=== PATIENT | male | born 1960 | race Caucasian/White ===

== ENCOUNTER → 2020-04-28 | Outpatient (CLI) | payer BC ==
--- NOTE | 2020-04-28 14:49 | REPPI ---
INDICATION: ELEVATED PSA. COMPARISON: None. TECHNIQUE: Transrectal ultrasound of the prostate is performed. FINDINGS: Prostate measures 4.5 x 2.8 x 5.1 cm, total volume 33.1 mL. Echotexture is diffusely heterogeneous. There are tiny cysts and calcifications throughout the prostate with no focal mass. Seminal vesicles are symmetrical. IMPRESSION: Ultrasound guidance was provided for Dr. Miller who performed ultrasound-guided biopsy of the prostate. <Electronically signed by Hari Mojica > 04/28/20 [id number]
== END ==
LOC: M SMT PRO 10:28
PROVIDERS: ATTEND Urology
DX: C61 Malignant neoplasm of prostate (principal); R97.20 Elevated prostate specific antigen [PSA]; N40.2 Nodular prostate without lower urinary tract symptoms
CPT/HCPCS: 76872; G0416

== ENCOUNTER → 2020-06-20 | Outpatient (CLI) | payer BC ==
[~2020-06-20] MED LIST: CHOLINE FENOFIBRATE PO; LISI20TA35 PO; METF500T13 PO; SIMV40TA20 PO; TRUL0.5I SC
== END ==
LOC: M LABSMTC 08:36
PROVIDERS: ATTEND Anesthesiology
DX: Z01.812 Encounter for preprocedural laboratory examination (principal); Z20.822 Contact with and (suspected) exposure to COVID-19

== ENCOUNTER 2020-06-25 06:08 | Inpatient (IN) | payer BC ==
[2020-06-25] VITALS (7 sets, daily range): BP systolic 130–170; BP diastolic 80–111
[~2020-06-25] VITALS: Ht 177.8 cm; Wt 96.2 kg
[~2020-06-25 06:08] MED LIST changes: +LIDOCAINE 1% MDV 20ML VIAL SQ PRN
[2020-06-25] MEDS ORDERED: HEPARIN SOD (PORCINE) 5000UNITS/ML 1ML VIAL/SYRINGE SQ ONE (07:00)
[2020-06-25] MEDS ORDERED: LR 1,000 ML IV ONE (07:00)
[2020-06-25] MEDS ORDERED: ceFAZolin SOD 2 GM in IV 1 EA IV ONE (07:00)
[2020-06-25] MEDS ORDERED: LIDOCAINE 1% SDV 30ML VIAL As Ordered ONE (07:08)
[2020-06-25] MEDS ORDERED: BUPIVACAINE HCL 0.25% 30ML VIAL As Ordered ONE (07:08)
[2020-06-25] MEDS ORDERED: ONDANSETRON 4MG/2ML VIAL As Ordered ONE (07:11)
[2020-06-25] MEDS ORDERED: LIDOCAINE 2% 100MG/5ML SDV (FOR ANES.) As Ordered ONE (07:11)
[2020-06-25] MEDS ORDERED: propofoL 200 MG/20 ML VIAL As Ordered ONE (07:11)
[2020-06-25] MEDS ORDERED: ROCURONIUM BROMIDE 50 MG/5 ML VIAL As Ordered ONE ×3 (07:11→10:01)
[2020-06-25] MEDS ORDERED: dexameTHASONE 4 MG/ML 1ML VIAL (J1100 PER 1MG) As Ordered ONE (07:11)
[2020-06-25] MEDS ORDERED: MIDAZOLAM INJ 2MG/2ML VIAL (J2250 PER 1MG) As Ordered ONE (07:12)
[2020-06-25] MEDS ORDERED: fentaNYL 100 MCG/2 ML INJECTION (J3010) As Ordered ONE ×2 (07:12→12:45)
[2020-06-25] MEDS ORDERED: KETAMINE HCL 200 MG/20 ML VIAL As Ordered ONE (07:12)
[2020-06-25] MEDS ORDERED: ACETAMINOPHEN 1000MG 100ML IV BTL (OFIRMEV) (J0131 PER 10MG) As Ordered ONE (07:13)
[2020-06-25] MEDS ORDERED: LACRILUBE (AKWA TEARS) OPHTH OINT 3.5 GM As Ordered ONE (07:19)
[2020-06-25] MEDS ORDERED: MORPHINE 2 MG/ML 1ML VIAL (J2270) IV PRN (07:25)
[2020-06-25] MEDS ORDERED: ONDANSETRON 4MG/2ML VIAL IV PRN ×2 (07:25→13:35)
[2020-06-25] MEDS ORDERED: ACETAMINOPHEN TAB 650MG DOSE (2X325MG) PO PRN (07:25)
[2020-06-25] MEDS ORDERED: PERCOCET 5MG/325MG TAB PO PRN (07:25)
[2020-06-25] MEDS ORDERED: GLUCAGON INJ 1MG VIAL SC PRN (07:40)
[2020-06-25] MEDS ORDERED: DEXTROSE 50% 50 ML SYRINGE IV PRN (07:40)
[2020-06-25] MEDS ORDERED: GLUCOSE 4GM CHEW TABLET PO PRN (07:40)
[2020-06-25] MEDS ORDERED: HYDROmorphone HCL 2 MG/ML 1ML VIAL (J1170) As Ordered ONE (08:06)
[2020-06-25] MEDS ORDERED: KETOROLAC 60MG 2ML VIAL As Ordered ONE (08:09)
[2020-06-25] MEDS ORDERED: SUGAMMADEX SODIUM 500 MG/5 ML VIAL (BRIDION) As Ordered ONE (08:09)
[2020-06-25] MEDS ORDERED: PHENYLephrine 500MCG 5ML (100MCG/ML) SYRINGE As Ordered ONE (09:04)
[2020-06-25] MEDS ORDERED: ceFAZolin 2 GM/D5W 50 ML IV BAG (J0690 PER 500MG) As Ordered ONE (11:31)
[2020-06-25] MEDS ORDERED: DESFLURANE 240 ML INHALANT As Ordered ONE (11:51)
[2020-06-25] MEDS: HumaLOG INSULIN (NovoLOG) PER UNIT SC SCH ×2 (12:00→17:28)
[2020-06-25] MEDS: fentaNYL 100 MCG/2 ML INJECTION (J3010) IV PRN ×4 (12:45→13:00)
--- NOTE | 2020-06-25 13:03 | ROOPDOC ---
[facility] Report Of Operation Report of Operation DATE OF PROCEDURE: 06/25/20 PREPROCEDURE DIAGNOSIS: Prostate cancer. POSTPROCEDURE DIAGNOSIS: Prostate cancer. PROCEDURE: Robotic-assisted laparoscopic radical prostatectomy with bilateral pelvic lymph node dissection. SURGEON: Amber Whiteside MD [employer] INSTRUCTOR: Prachi Begum NP ANESTHESIA: General. OPERATIVE INDICATIONS: This is a 59 year old male with clinical T2b [place] 3+4 prostate cancer. After a discussion of the options for treatment, he elected to undergo the above procedure. DESCRIPTION OF PROCEDURE: The patient was brought to the operating room and general anesthesia was induced. Prophylactic antibiotics were infused. He was then placed in the dorsal lithotomy position and prepped and draped in the usual sterile fashion. At this point, a Bowens catheter was inserted into the bladder and the balloon was filled with 10 mL of sterile water. We then made a midline incision just above the umbilicus for an 8 mm port. A Veress needle was utilized to achieve pneumoperitoneum. Next, an 8 mm port was inserted into the incision and subsequently a camera was inserted. There were no injuries from the Veress needle or initial trocar placement. At this point, we placed the remaining ports, including a 12 mm public relations assistant port and then three robotic ports in the usual configuration. Once all the ports were placed, the robot was docked. Lysis of adhesions between the sigmoid colon and abdominal wall was then performed. The bladder was then released from the anterior abdominal wall using electrocautery. Once the bladder was dropped, the fat overlying the prostate was cleared using electrocautery. The superficial dorsal vein was controlled with electrocautery. The endopelvic fascia was opened on both sides and the dorsal venous complex was cleared. Next, a #0 Vicryl [id number] stitch was placed around the dorsal venous complex. Once that was done, the bladder was opened and dissected away from the prostate. At this point, the prostate was lifted up. The vasa deferentia were identified in the midline. They were then ligated and transected. The seminal vesicles were also dissected off bilaterally. The rectum was safely mobilized away from the prostate. Bilateral prostatic pedicles were taken using the Harmonic scalpel. The pedicles were carried towards the apex. After taking care of the pedicles and mobilizing the rectum off the prostate below, the prostate was only connected by the urethra. At this point, the dorsal venous complex was transected with electrocautery. The urethra was then opened and the catheter was withdrawn and the posterior urethra was transected, thus freeing the prostate. At this point, we checked for hemostasis and it did appear very good. Next, we performed bilateral pelvic lymph node dissection. This was done in a standard fashion. The limits of dissection were the iliac vein proximally, the obturator nerve distally, the pelvic sidewall laterally, and the bladder medially. All lymphatic tissue within these limits was removed. I performed the same procedure on both the right and left sides. Hemostasis was then obtained with bipolar electrocautery. The lymphatic packets were then placed in separate Endo Catch bags for future retrieval. Once hemostasis was confirmed, I then moved on to perform the vesicourethral anastomosis. This was performed with a Quill stitch in a running fashion. Once this was done, the final #20-Surinamese Bowens catheter was placed. The balloon was filled with 15 mL of sterile water. Upon completion of the vesicourethral anastomosis, it was tested by filling the bladder with sterile saline water. The anastomosis appeared to be watertight. At this point, the prostate and seminal vesicles were placed in an Endo Catch bag for future retrieval. The robot was then undocked. A Nedra fascial closure device was utilized to place a #0 Vicryl suture between the fascia of the 12 mm public relations assistant port. At this point, a Scar- Anaya drain was brought in through the left robotic port skin site and the drain was positioned anterior to the bladder. The drain was secured to the skin with #2-0 Ethilon suture. Next, all the remaining ports were removed and there did not appear to be any bleeding from any of the port sites. The prostate, as well as the lymphatic packets were then extracted from the camera port site after the skin was extended. The fascia in this incision was then closed with a running #0 Vicryl stitch. The previously placed #0 Vicryl free ties through the a ssistant port were then tied down and all incisions were irrigated. Last, all of the incisions were closed with running subcuticular #4-0 Monocryl sutures. Local anesthesia was applied. Dermabond was then applied to the incisions. This marked the conclusion of the procedure. The patient was then taken out of the dorsal lithotomy position, awakened from anesthesia and transported to the recovery room in stable condition. ESTIMATED BLOOD LOSS: 175 mL. COMPLICATIONS: None. SPECIMENS: Prostate and seminal vesicles, right pelvic lymph nodes, left pelvic lymph nodes. PLAN: The patient will be admitted to the hospital postoperatively, and he will likely be discharged home within the next 1-2 days. AMBER WHITESIDE MD Jun 25, 2020 07:42
[2020-06-25 13:14] LABS: HEMATOCRIT 38.7 % (42.0-52.0); HEMOGLOBIN 13.1 g/dl (13.5-17.5); MEAN CORPUSCULAR HEMOGLOBIN 31.1 pg (27.0-33.0); MEAN CORPUSCULAR HGB CONC 33.9 g/dl (32.0-36.5); MEAN CORPUSCULAR VOLUME 91.9 fl (80.0-96.0); PLATELET COUNT, AUTOMATED 125 10^3/uL (150-450); RED BLOOD COUNT 4.21 10^6/uL (4.30-6.10); WHITE BLOOD COUNT 6.8 10^3/uL (4.0-10.0)
[2020-06-25] MEDS ORDERED: oxyCODONE 5MG TAB PO PRN (13:35)
[2020-06-25] MEDS ORDERED: LR 1,000 ML IV SCH (13:35)
[2020-06-25 13:41] LABS: BLOOD UREA NITROGEN 27 MG/DL (7-18); CALCIUM LEVEL 8.8 MG/DL (8.5-10.1); CARBON DIOXIDE LEVEL 25 MEQ/L (21-32); CHLORIDE LEVEL 105 MEQ/L (98-107); CREATININE FOR GFR 1.21 MG/DL (0.70-1.30); GLOMERULAR FILTRATION RATE > 60.0 (>56); GLUCOSE, FASTING 311 MG/DL (70-100); SODIUM LEVEL 136 MEQ/L (136-145)
[2020-06-25] MEDS: HYDROMORPHONE HCL 0.5 MG/ 0.5 ML SYRINGE (J1170 PER 1) IV PRN ×4 (13:52→14:13)
[2020-06-25] MEDS: HEPARIN SOD (PORCINE) 5000UNITS/ML 1ML VIAL/SYRINGE SC SCH ×2 (14:00→21:13)
[2020-06-25] MEDS: ceFAZolin SOD 1 GM in D5W MINI-BAG PLUS 50 ML IV SCH (16:39)
[2020-06-25] MEDS: PERCOCET 5MG/325MG TAB PO PRN ×2 (16:42→21:15)
[2020-06-25] MEDS: NS 1,000 ML IV SCH (17:20)
[2020-06-25] MEDS ORDERED: hydroCHLOROthiazide 12.5 MG CAPSULE PO ONE (18:00)
[2020-06-25] MEDS ORDERED: HumaLOG INSULIN (NovoLOG) PER UNIT SC SCH (21:00)
[2020-06-25] MEDS ORDERED: SIMVASTATIN 40 MG TAB PO SCH (21:00)
[2020-06-25] MEDS: DOCUSATE SODIUM 100MG CAPSULE PO SCH (21:13)
[2020-06-26] MEDS: ceFAZolin SOD 1 GM in D5W MINI-BAG PLUS 50 ML IV SCH (01:07)
[2020-06-26] MEDS: PERCOCET 5MG/325MG TAB PO PRN ×3 (01:15→13:07)
[2020-06-26 01:40] VITALS: BP 158/87
[2020-06-26] MEDS: NS 1,000 ML IV SCH (03:25)
[2020-06-26 06:07] VITALS: BP 134/88
[2020-06-26] MEDS: HEPARIN SOD (PORCINE) 5000UNITS/ML 1ML VIAL/SYRINGE SC SCH ×2 (06:18→13:06)
[2020-06-26 06:29] LABS: HEMATOCRIT 37.8 % (42.0-52.0); HEMOGLOBIN 12.5 g/dl (13.5-17.5); MEAN CORPUSCULAR HEMOGLOBIN 30.8 pg (27.0-33.0); MEAN CORPUSCULAR HGB CONC 33.1 g/dl (32.0-36.5); MEAN CORPUSCULAR VOLUME 93.1 fl (80.0-96.0); PLATELET COUNT, AUTOMATED 152 10^3/uL (150-450); RED BLOOD COUNT 4.06 10^6/uL (4.30-6.10); WHITE BLOOD COUNT 9.5 10^3/uL (4.0-10.0)
[2020-06-26 06:53] LABS: BLOOD UREA NITROGEN 24 MG/DL (7-18); CALCIUM LEVEL 8.8 MG/DL (8.5-10.1); CARBON DIOXIDE LEVEL 28 MEQ/L (21-32); CHLORIDE LEVEL 104 MEQ/L (98-107); CREATININE FOR GFR 0.86 MG/DL (0.70-1.30); GLOMERULAR FILTRATION RATE > 60.0 (>56); GLUCOSE, FASTING 202 MG/DL (70-100); POTASSIUM SERUM 4.3 MEQ/L (3.5-5.1); SODIUM LEVEL 137 MEQ/L (136-145)
--- NOTE | 2020-06-26 07:51 | IPNPDOC ---
Subjective Review oF Systems Chief Complaint The patient is a 59-year-old male admitted with a reason for visit of Prostate Cancer. Events since Last Encounter No acute events o/n. Good pain control. Feels bloated. Denies flatus yet. Has been OOB to the chair but has not ambulated. No n/v. No f/c/ns. Objective Physical Examination General Exam: Alert, Cooperative, No Acute Distress ABDOMEN EXAM: Soft, Tenderness (minimal), Other (incisions clean/dry/intact; TRACEY w/ serosanguinous output) Skin Exam: Nl turgor and temperature Neuro Exam: Normal Speech Psych Exam: Mental status NL, Mood NL Other physical findings catheter draining yellow urine Vital Signs/I&O Vital Signs Date Time Temp Pulse Resp B/P (MAP) Pulse Ox O2 Delivery O2 Flow Rate FiO2 06/26/20 06:50 16 06/26/20 06:07 98.5 86 134/88 (103) 96 Room Air 06/25/20 16:30 1.0 I&O- Last 24 Hours up to 6 AM 06/26/20 06:00 Intake Total 4940 ml Output Total 4050 ml Balance 890 ml Laboratory Data Labs 24H Laboratory Tests 2 06/25/20 12:55: Nucleated Red Blood Cells % (auto) 0.0, Anion Gap 6L, Glomerular Filtration Rate > 60.0, Calcium Level 8.8 06/25/20 17:11: Bedside Glucose (Misc Panel) 283H 06/25/20 20:30: Bedside Glucose (Misc Panel) 310H 06/26/20 05:22: Nucleated Red Blood Cells % (auto) 0.0, Anion Gap 5L, Glomerular Filtration Rate > 60.0, Calcium Level 8.8 CBC/BMP Laboratory Tests 06/25/20 12:55 06/26/20 05:22 FSBS Laboratory Tests Test 06/25/20 17:11 06/25/20 20:30 Range/Units Bedside Glucose (Misc Panel) 283 310 70-105 MG/DL Assessment/Plan Date Seen The patient was seen on 06/26/20. Patient Summary This is a 59 y/o M POD1 s/p RALP w/ BPLND. Hb 12.5. Cr 0.9. Good UOP. Normal TRACEY output. Plan/VTE VTE Prophylaxis Ordered?: Yes VTE Exclusion Mechanical Proph: N/A:VTE Prophy Ordered VTE Exclusion Pharmacological: Thrombocytopenia Plan/Urinary Catheter Urinary Catheter: Other Catheter: (catheter needs to stay in at least 7 days) Plan - percocet prn pain - cont home meds - SSI - strict I/Os - SCDs when in bed - ambulate - SQH - incentive spirometry - regular diet - possible discharge home later today w/ catheter AMBER WHITESIDE MD Jun 26, 2020 07:51
[2020-06-26 08:41] VITALS: BP 134/88
[2020-06-26] MEDS: HumaLOG INSULIN (NovoLOG) PER UNIT SC SCH ×2 (08:41→13:06)
[2020-06-26] MEDS: DOCUSATE SODIUM 100MG CAPSULE PO SCH (08:42)
[2020-06-26] MEDS ORDERED: hydroCHLOROthiazide 12.5 MG CAPSULE PO SCH (09:00)
[2020-06-26 10:00] VITALS: BP 153/86
[2020-06-26] MEDS ORDERED: MIRALAX *UNIT DOSE* 17GM PACKET PO PRN (13:15)
[2020-06-26 14:00] VITALS: BP 159/95
[2020-06-26] MEDS ORDERED: DOK1CAP7 PO ×2 (14:06→18:00)
[2020-06-26] MEDS ORDERED: BACT800T5 PO ×2 (14:06→18:00)
[2020-06-26] MEDS ORDERED: PERCOCET PO ×2 (14:06→18:00)
[2020-06-26] MEDS ORDERED: SIMETHICONE 80MG CHEW TAB PO ONE (15:15)
--- NOTE | 2020-06-27 11:42 | DSES ---
DISCHARGE SUMMARY DATE OF ADMISSION: 06/25/2020 DATE OF DISCHARGE: 06/26/2020 ADMISSION DIAGNOSIS: Prostate cancer. DISCHARGE DIAGNOSIS: Prostate cancer. ADMITTING PHYSICIAN: Govind Miller MD DISCHARGE PHYSICIAN: Govind Miller MD PROCEDURES PERFORMED: Robotic assisted laparoscopic radial prostatectomy, bilateral pelvic lymph node dissection on June 25, 2020 HISTORY OF PRESENT ILLNESS: This is a 59-year-old male who underwent the above procedure and admitted to the hospital postoperatively. HOSPITALIZATION COURSE: The patient was admitted to the hospital after undergoing robotic radical prostatectomy, bilateral pelvic lymph node dissection. His postoperative course was notable only for gas pain postoperatively. On postoperative day 1, he was up and ambulating well. His pain was well controlled with minimal oral pain medication. His IV fluids were discontinued and he was tolerating a regular diet without any nausea or vomiting. He started passing flatus and noted that his abdominal bloating was starting to feel significantly better. He had excellent urine output from his catheter and normal output from his Scar-Anaya drain. His lab work from postoperative day 1 was notable for a stable hemoglobin of 12.5 and a serum creatinine of 0.86. He had minimal output from the Scar-Anaya drain and therefore that was removed on postoperative day 1. Since he is doing well, he was deemed ready for discharge home. He was discharged home with his catheter in place with a plan for him to follow up in urology clinic in approximately one week for catheter removal and to discuss pathology results. MIK
== END 2020-06-26 18:55 | disposition home or self-care (01) | DRG 484 ==
LOC: M OR 06:08 → M MS5PR 14:49
PROVIDERS: ADMIT Urology; ATTEND Urology
PROC: 07BC4ZX Excision of Pelvis Lymphatic, Percutaneous Endoscopic Approach, Diagnostic (ICD-10-PCS; 2020-06-25)
PROC: 8E0W4CZ Robotic Assisted Procedure of Trunk Region, Percutaneous Endoscopic Approach (ICD-10-PCS; 2020-06-25)
PROC: 0VT04ZZ Resection of Prostate, Percutaneous Endoscopic Approach (ICD-10-PCS; principal; 2020-06-25 07:30)
DX: C61 Malignant neoplasm of prostate (principal); D69.6 Thrombocytopenia, unspecified; I10 Essential (primary) hypertension; E78.00 Pure hypercholesterolemia, unspecified; E11.9 Type 2 diabetes mellitus without complications; Z79.84 Long term (current) use of oral hypoglycemic drugs; Z79.899 Other long term (current) drug therapy; Z87.891 Personal history of nicotine dependence

== ENCOUNTER → 2020-10-17 | Outpatient (CLI) | payer BC ==
[~2020-10-17] MED LIST changes: +BACT800T5 PO; +DOK1CAP7 PO; -LIDOCAINE 1% MDV 20ML VIAL SQ PRN; +PERCOCET PO
== END ==
LOC: M LAB 10:05
PROVIDERS: ATTEND Urology
DX: C61 Malignant neoplasm of prostate (principal)

== ENCOUNTER 2025-02-25 09:11 | Emergency (ER) | payer BC ==
[~2025-02-25] VITALS: Ht 172.7 cm; Wt 93.2 kg
[~2025-02-25 09:11] MED LIST changes: +DOK1CAP4 PO; -DOK1CAP7 PO
[2025-02-25 10:46] LABS: BASO # 0.0 10^3/uL (0.0-0.2); BASO % 0.4 % (0.0-1.0); EOS # 0.1 10^3/uL (0.0-0.5); EOS % 0.7 % (0.0-3.0); LYMPH # 0.0 10^3/uL (1.5-5.0); LYMPH % 0.6 % (24.0-44.0); MONO # 1.5 10^3/uL (0.0-0.8); MONO % 21.1 % (2.0-8.0); NEUTROPHILS # 5.5 10^3/uL (1.5-8.5); NEUTROPHILS % 76.8 % (36.0-66.0); PLATELET COUNT, AUTOMATED 122 10^3/uL (150-450)
[2025-02-25 10:47] LABS: VENOUS BASE EXCESS -0.1 (-2.0-2.0); VENOUS HCO3 23.6 MMOL/L (23.0-27.0); VENOUS O2 SATURATION 94.8 % (60.0-80.0); VENOUS PARTIAL PRESSURE CO2 35.7 mmHg (38.0-50.0); VENOUS PARTIAL PRESSURE O2 78.0 mmHg (30.0-50.0); VENOUS PH 7.439 UNITS (7.330-7.430); VENOUS STANDARD HCO3 24.4 MMOL/L; VENOUS TOTAL CO2 24.7 MMOL/L (24.0-28.0)
[2025-02-25 11:07] LABS: INR 0.98
[2025-02-25 11:16] LABS: ALT/SGPT 22 U/L (7.0-40); AST/SGOT 32 U/L (<34); CALCIUM LEVEL 8.2 MG/DL (8.3-10.6); CARBON DIOXIDE LEVEL 24 MMOL/L (20-31); CHLORIDE LEVEL 102 MMOL/L (98-107); CK-MB VALUE MASS 1.0 NG/ML (<3.6); CPK CREATINE PHOSPHOKINASE 95 U/L (46-171); CREATININE FOR GFR 0.67 MG/DL (0.70-1.30); GLOMERULAR FILTRATION RATE > 90.0 (>49); MB/CK RELATIVE INDEX 1.05 (< OR =4); POTASSIUM SERUM 3.4 MMOL/L (3.5-5.1); SODIUM LEVEL 138 MMOL/L (136-145)
[2025-02-25 11:18] LABS: FREE T4 0.88 NG/DL (0.89-1.76)
[2025-02-25] MEDS ORDERED: CLOP75TA2 PO (11:27)
[2025-02-25] MEDS ORDERED: CHOL400T PO (11:27)
[2025-02-25] MEDS ORDERED: ATOR80TA59 PO (11:27)
[2025-02-25] MEDS ORDERED: METO50TA7 PO (11:27)
[2025-02-25] MEDS ORDERED: TIZA1TAB12 PO (11:27)
[2025-02-25] MEDS ORDERED: JARD1TAB3 PO (11:27)
[2025-02-25] MEDS ORDERED: IBUP80TA PO (11:27)
[2025-02-25] MEDS ORDERED: AMLO1TAB25 PO (11:27)
[2025-02-25] MEDS ORDERED: AMOX875T2 PO (11:27)
[2025-02-25] MEDS ORDERED: CYAN500T20 PO (11:27)
[2025-02-25] MEDS ORDERED: LISI40TA10 PO (11:27)
[2025-02-25] MEDS ORDERED: OMEG10002 PO (11:27)
[2025-02-25] MEDS ORDERED: FOLI1TAB11 PO (11:27)
[2025-02-25] MEDS ORDERED: HOME MED LIST COMPLETE! XX SCH (11:30)
[2025-02-25 12:00] LABS: KETONE, URINE AUTO RFX NEGATIVE (NEGATIVE); LEUKOCYTE ESTERASE UR AUTO RFX NEGATIVE (NEGATIVE); NITRITE, URINE AUTO RFX NEGATIVE (NEGATIVE); RBC, URINE AUTO RFX 1 /HPF (0-3); SQUAM EPITHELIAL CELL UR AURFX 0 /HPF (0-6); WBC, URINE AUTO RFX 9 /HPF (0-3)
[2025-02-25] MEDS ORDERED: ISOVUE-370 76% 100 ML VIAL As Ordered ONE (12:11)
[2025-02-25 12:16] LABS: CPK CREATINE PHOSPHOKINASE 91 U/L (46-171)
[2025-02-25 13:15] LABS: CK-MB VALUE MASS < 1.0 NG/ML (<3.6)
[2025-02-25] MEDS ORDERED: HEPARIN SOD 5000 UNITS/ML 1 ML VIAL/SYRINGE IV PRN (14:10)
[2025-02-25] MEDS: cefTRIAXone SOD 1 GM in DEXTROSE 5% (D5W) ADV/MINI-BAG 50 ML IV ONE (14:31)
[2025-02-25] MEDS: HEPARIN SOD 5000 UNITS/ML 1 ML VIAL/SYRINGE IV ONE (14:31)
[2025-02-25] MEDS: HEPARIN DRIP 25,000 UNITS in IV 1 EA IV SCH (14:32)
[2025-02-25] MEDS: DOXYCYCLINE HYCLATE 100 MG in DEXTROSE 5% (D5W) MINI-BAG PLU 100 ML IV ONE (15:12)
[2025-02-25 16:16] VITALS: BP 172/84; TEMP 99.9; O2SAT 92
== END 2025-02-25 16:15 | disposition short-term general hospital (02) ==
LOC: M ED 09:11
DX: I21.4 Non-ST elevation (NSTEMI) myocardial infarction (principal); J18.9 Pneumonia, unspecified organism; I50.22 Chronic systolic (congestive) heart failure; I25.119 Atherosclerotic heart disease of native coronary artery with unspecified angina pectoris; I25.2 Old myocardial infarction; I11.0 Hypertensive heart disease with heart failure; E78.5 Hyperlipidemia, unspecified; F41.9 Anxiety disorder, unspecified; F32.A Depression, unspecified; Z87.891 Personal history of nicotine dependence; Z79.1 Long term (current) use of non-steroidal anti-inflammatories (NSAID); Z79.2 Long term (current) use of antibiotics; Z79.899 Other long term (current) drug therapy
CPT/HCPCS: 71045; 71275; 80047; 80048; 80076; 81001; 82550; 82553; 82803; 83690; 83880; 84145; 84439; 84443; 84484; 85025; 85610; 85730; 87040; 87077; 87154; 87186; 87486; 87581; 87633; 87798; 93005; 93041; 94760; 96374; 96375; 99285; J0696; J1271; Q9967